=== PATIENT | female | born 1970 | race African-American/Black ===

== ENCOUNTER 2021-10-31 15:02 | Inpatient (IN) | payer OTHER, MEDICAID ==
[~2021-10-31] VITALS: Ht 160 cm; Wt 63.7 kg
[2021-10-31 17:11] LABS: HEMATOCRIT. 37.8 % (36.0-48.0); HEMOGLOBIN. 12.8 g/dL (12.0-16.0); MEAN CORPUSCULAR HEMOGLOBIN 28.7 pg (28.0-32.0); MEAN CORPUSCULAR VOLUME 84.9 fL (81.0-99.0); MEAN PLATELET VOLUME 8.9 fl (7.4-10.4); PLATELET 513 x1000/uL (130-400); RED BLOOD CELL COUNT 4.46 mill/uL (4.2-5.4); RED CELL DISTRIBUTION WIDTH 14.2 % (11.6-14.6)
[2021-10-31 17:17] LABS: CHLORIDE 100 mEq/L (98-107)
[2021-10-31] MEDS ORDERED: KCL 10MEQ/50ML PREMIX 50 ML IV STA (17:43)
[2021-10-31] MEDS ORDERED: POTASSIUM CHLORIDE 20MEQ TABLET SR PO ONE (17:45)
[2021-10-31] MEDS ORDERED: KCL 20MEQ/100ML PREMIX 100 ML IV NR (18:00)
[2021-10-31] MEDS ORDERED: KCL 10MEQ/50ML PREMIX 50 ML IV ONE (18:00)
[2021-10-31] MEDS ORDERED: POTASSIUM CHLORIDE 20MEQ TABLET SR PO NR (18:00)
[2021-10-31 19:54] LABS: PLATELET ESTIMATE INCREASED
[2021-11-01 01:25] LABS: CHLORIDE 109 mEq/L (98-107)
[2021-11-01] MEDS ORDERED: POTASSIUM CHLORIDE 20MEQ TABLET SR PO ONE (02:15)
[2021-11-01] MEDS ORDERED: POTASSIUM CHLORIDE 20MEQ/PACKET PO ONE (02:15)
[2021-11-01] MEDS ORDERED: KCL 10MEQ/50ML PREMIX 50 ML IV ONE (02:15)
[2021-11-01] MEDS ORDERED: POTASSIUM CHLORIDE 20MEQ/PACKET PO NR (07:00)
[2021-11-01] MEDS: AMLODIPINE 10MG TABLET PO SCH (09:45)
[2021-11-01 09:51] LABS: BG BASE EXCESS 6.3 mmol/L (-2.0-2.0); BG CARBOXYHEMOGLOBIN 0.8 % (0.5-1.5); BG DEOXYHEMOGLOBIN 3.3 % (0.0-5.0); BG FRACTION INSPIRED OXYGEN 21; BG HCO3 ACT 29.8 mmol/L (22.0-26.0); BG METHEMOGLOBIN 0.2 % (0.0-1.5); BG OXYGEN SATURATION 96.7 % (92.0-98.5); BG OXYHEMOGLOBIN 95.7 % (94.0-97.0); BG PCO2 38.6 mmHg (35.0-45.0); BG PH 7.505 (7.350-7.450); BG PO2 84.3 mmHg (75.0-100.0); BG SAMPLE SITE LEFT RADIAL; BG TOTAL HEMOGLOBIN 12.1 g/dL (12.0-18.0); BG VENT MODE ROOM AIR
[2021-11-01 11:00] VITALS: BP 148/87
[2021-11-01 12:00] VITALS: BP 148/87
[2021-11-01] MEDS: POTASSIUM CHLORIDE 20MEQ TABLET SR PO SCH ×2 (12:18→20:32)
[2021-11-01] MEDS ORDERED: LISI2.5T47 MT (14:00)
[2021-11-01 16:00] VITALS: BP 128/79
[2021-11-01 16:21] LABS: CHLORIDE 102 mEq/L (98-107)
[2021-11-01] MEDS ORDERED: POTASSIUM CHLORIDE 20MEQ TABLET SR PO NR (17:49)
[2021-11-01 20:00] VITALS: BP 143/82
[2021-11-01] MEDS ORDERED: POTASSIUM CHLORIDE 20MEQ TABLET SR PO SCH ×2 (20:50→23:50)
[2021-11-02] VITALS: BP 130/76
[2021-11-02 00:40] LABS: CHLORIDE 104 mEq/L (98-107)
[2021-11-02 04:00] VITALS: BP 132/78
[2021-11-02 08:00] VITALS: BP 133/82
[2021-11-02] MEDS: AMLODIPINE 10MG TABLET PO SCH (08:47)
[2021-11-02] MEDS: POTASSIUM CHLORIDE 20MEQ TABLET SR PO SCH (08:47)
[2021-11-02 12:00] VITALS: BP 150/98
[2021-11-02 12:09] LABS: BASOPHILS % 0.7 % (0.0-2.0); EOSINOPHILS % 1.1 % (0.0-5.0); HEMATOCRIT. 37.5 % (36.0-48.0); HEMOGLOBIN. 12.1 g/dL (12.0-16.0); LYMPHOCYTES % 31.4 % (20.0-50.0); MEAN CORPUSCULAR HEMOGLOBIN 27.9 pg (28.0-32.0); MEAN CORPUSCULAR VOLUME 86.5 fL (81.0-99.0); MEAN PLATELET VOLUME 9.5 fl (7.4-10.4); MONOCYTES % 7.5 % (2.0-8.0); NEUTROPHILS % 59.3 % (40.0-76.0); PLATELET 482 x1000/uL (130-400); RED BLOOD CELL COUNT 4.33 mill/uL (4.2-5.4); RED CELL DISTRIBUTION WIDTH 14.1 % (11.6-14.6)
[2021-11-02 12:34] LABS: CHLORIDE 107 mEq/L (98-107); PHOSPHORUS 1.8 mg/dL (2.5-4.9)
[2021-11-02 14:28] VITALS: BP 150/98
== END 2021-11-02 17:03 | disposition home or self-care (01) | DRG 641 ==
LOC: ER 15:02 → MICUSO 11-01 02:16 → 8WST 11-01 11:09
PROVIDERS: ADMIT Internal Medicine; ATTEND Internal Medicine
DX: E87.6 Hypokalemia (principal); I10 Essential (primary) hypertension; D21.9 Benign neoplasm of connective and other soft tissue, unspecified; E87.3 Alkalosis; Z87.891 Personal history of nicotine dependence; Z82.49 Family history of ischemic heart disease and other diseases of the circulatory system; Z79.899 Other long term (current) drug therapy
CPT/HCPCS: 36415; 36600; 80048; 82375; 82805; 83735; 84100; 85025; 99285; J3480

== ENCOUNTER 2021-11-11 17:46 | Emergency (ER) | payer OTHER, MEDICAID ==
[~2021-11-11] VITALS: Ht 160 cm; Wt 64.0 kg
[~2021-11-11 17:46] MED LIST: LISI2.5T47 MT
[2021-11-12 00:12] LABS: BASOPHILS % 0.7 % (0.0-2.0); HEMATOCRIT. 35.4 % (36.0-48.0); HEMOGLOBIN. 11.7 g/dL (12.0-16.0); LYMPHOCYTES % 37.8 % (20.0-50.0); MEAN CORPUSCULAR VOLUME 84.7 fL (81.0-99.0); MEAN PLATELET VOLUME 8.5 fl (7.4-10.4); MONOCYTES % 8.3 % (2.0-8.0); NEUTROPHILS % 52.2 % (40.0-76.0); PLATELET 408 x1000/uL (130-400); RED BLOOD CELL COUNT 4.18 mill/uL (4.2-5.4); RED CELL DISTRIBUTION WIDTH 13.8 % (11.6-14.6)
[2021-11-12] MEDS ORDERED: POTASSIUM CHLORIDE 20MEQ TABLET SR PO ONE (01:45)
[2021-11-12 01:51] LABS: CHLORIDE 102 mEq/L (98-107)
[2021-11-12] MEDS ORDERED: POTA-204 MT (01:51)
[2021-11-12 02:15] VITALS: BP 126/74
== END 2021-11-12 02:12 | disposition home or self-care (01) ==
LOC: ER 17:46
DX: E87.6 Hypokalemia (principal); D64.9 Anemia, unspecified; R94.31 Abnormal electrocardiogram [ECG] [EKG]; I10 Essential (primary) hypertension
CPT/HCPCS: 36415; 80053; 85025; 93005; 99284